=== PATIENT | male | born 1975 | race Caucasian/White ===

== ENCOUNTER → 2017-03-22 | Outpatient (CLI) | payer OTHER ==
--- NOTE | 2017-03-22 12:11 | REP ---
Clinical: thoracic pain. Technique: AP, lateral, and swimmers views. Findings: Alignment and kyphosis is maintained. Vertebral bodies are intact and there is no evidence for acute fracture / compression injury or subluxation. No significant degenerative changes are appreciated . Paravertebral soft tissues are normal. Impression: Normal age related thoracic spine series. Signed by Maximo Mazariegos MD 03/22/2017 12:02 P
--- NOTE | 2017-03-22 12:43 | REP ---
Clinical: Left flank and back pain. Technique: AP, lateral, bilateral oblique and coned-down views of the lumbosacral spine. Findings: Degenerative disc disease at the L5-s1 level includes marginal osteophytes, endplate sclerosis and disc space narrowing along with hypertrophic facet changes. Remainder examination appears normal for age. Alignment and lordosis maintained. No acute fracture or subluxation. Impression: Focal advanced degenerative changes at the L5-S1 level. Signed by Maximo Mazariegos MD 03/22/2017 12:35 P
--- NOTE | 2017-03-22 12:45 | REP ---
ABDOMINAL SERIES: Six views. HISTORY: Back pain. Left flank pain. FINDINGS: Upright chest radiograph is unremarkable. There is no evidence of infiltrate or free subdiaphragmatic air. Heart size is normal. Supine and erect views of the abdomen show air and stool in a nondilated colon. No small bowel dilation is seen. Psoas margins and flank stripes are intact. No mass, organomegaly, or pathologic calcification is seen. IMPRESSION: Unremarkable abdominal series. Signed by Pawan Gudino MD 03/22/2017 01:12 P
== END ==
LOC: M LRY 11:15
PROVIDERS: ATTEND Nurse Practitioner Family
DX: M54.9 Dorsalgia, unspecified (principal)

== ENCOUNTER → 2017-03-22 | Outpatient (REF) | payer OTHER | LOC: M SFHCLERA 11:05 | PROVIDERS: ATTEND Nurse Practitioner Family | DX: M54.9 Dorsalgia, unspecified (principal) ==

== ENCOUNTER → 2017-04-23 | Outpatient (REF) | payer OTHER ==
[2017-04-23 17:37] LABS: MEAN CORPUSCULAR HEMOGLOBIN 29.5 pg (27.0-33.0); MEAN CORPUSCULAR HGB CONC 34.2 g/dl (32.0-36.5); MEAN CORPUSCULAR VOLUME 86.3 fl (80.0-96.0); WHITE BLOOD COUNT 9.2 10^3/uL (4.0-10.0)
[2017-04-23 18:23] LABS: ALBUMIN 3.8 GM/DL (3.2-5.2); ALBUMIN/GLOBULIN RATIO 1.09 (1.00-1.93); ALKALINE PHOSPHATASE 92 U/L (45-117); ALT/SGPT 78 U/L (12-78); ANION GAP 10 MEQ/L (8-16); AST/SGOT 44 U/L (15-37); BILIRUBIN,TOTAL 0.6 MG/DL (0.2-1.0); BLOOD UREA NITROGEN 14 MG/DL (7-18); CALCIUM LEVEL 9.2 MG/DL (8.5-10.1); CARBON DIOXIDE LEVEL 27 MEQ/L (21-32); CHLORIDE LEVEL 103 MEQ/L (98-107); CHOLESTEROL LEVEL 182 MG/DL (<200); CREATININE FOR GFR 0.79 MG/DL (0.70-1.30); FREE T4 0.99 NG/DL (0.76-1.46); GLOMERULAR FILTRATION RATE > 60.0 (>60); GLUCOSE, FASTING 111 MG/DL (70-105); SODIUM LEVEL 140 MEQ/L (136-145); TOTAL PROTEIN 7.3 GM/DL (6.4-8.2); TRIGLYCERIDES LEVEL 157 MG/DL (<150)
== END ==
LOC: M SFHCLERA 11:16
PROVIDERS: ATTEND Family Medicine
DX: R94.31 Abnormal electrocardiogram [ECG] [EKG] (principal); Z01.818 Encounter for other preprocedural examination

== ENCOUNTER 2017-06-20 22:27 | Emergency (ER) | payer OTHER ==
[~2017-06-20] VITALS: Ht 198.1 cm; Wt 145.4 kg
[2017-06-20] MEDS ORDERED: HYDR-3713 PO (22:39)
[2017-06-21] MEDS ORDERED: NORCO 5/325MG TABLET (BULK FOR ED) PO ONE
[2017-06-21 00:12] VITALS: BP 137/79
--- NOTE | 2017-06-21 07:40 | REP ---
Right foot four views: Mineralization joint spaces are unremarkable. There is no fracture or dislocation. There is internal fixation of the distal fibula and medial malleolus. There are no calcifications or foreign bodies. Impression: Essentially negative right foot. Internal fixation of the distal fibula and medial malleolus is incidentally identified. Signed by Orlin Carrillo MD 06/21/2017 07:32 A
== END 2017-06-21 00:13 | disposition home or self-care (01) ==
LOC: M ED 22:27
DX: M79.671 Pain in right foot (principal); M51.9 Unspecified thoracic, thoracolumbar and lumbosacral intervertebral disc disorder; Z87.891 Personal history of nicotine dependence

== ENCOUNTER → 2017-07-31 | Outpatient (CLI) | payer OTHER ==
[2017-08-03 00:09] LABS: Lyme Disease IgG/IgM Antibodie <0.91 ISR (0.00-0.90); Lyme Disease IgM Ab Quantitati <0.80 index (0.00-0.79)
== END ==
LOC: M LRY 11:50
DX: R94.31 Abnormal electrocardiogram [ECG] [EKG] (principal)
CPT/HCPCS: 36415

== ENCOUNTER → 2018-11-27 | Outpatient (CLI) | payer OTHER ==
[~2018-11-27] MED LIST: HYDR-3713 PO
--- NOTE | 2018-11-27 14:04 | REP ---
RIGHT ANKLE, FIVE VIEWS: HISTORY: Pain. The patient is status post ORIF of fractures of the distal tibia and fibula. Metal hardware is present. There is no acute fracture or dislocation. The joint space is normal in appearance. IMPRESSION: There is no acute fracture or dislocation. Electronically Signed by Michael Farley MD 11/27/2018 02:07 P
== END ==
LOC: M LRY 11:16
PROVIDERS: ATTEND Physician Assistant
DX: M25.571 Pain in right ankle and joints of right foot (principal)

== ENCOUNTER → 2020-06-29 | Outpatient (CLI) | payer SELFPAY | LOC: M LABSMTC 14:40 | PROVIDERS: ATTEND Pediatrics | DX: Z20.828 Contact with and (suspected) exposure to other viral communicable diseases (principal) ==

== ENCOUNTER → 2020-08-27 | Outpatient (CLI) | payer OTHER ==
[2020-08-27 12:42] LABS: ALBUMIN 3.6 GM/DL (3.2-5.2); ALT/SGPT 60 U/L (12-78); BILIRUBIN,TOTAL 1.7 MG/DL (0.2-1.0); BLOOD UREA NITROGEN 11 MG/DL (7-18); CALCIUM LEVEL 9.1 MG/DL (8.5-10.1); CARBON DIOXIDE LEVEL 32 MEQ/L (21-32); CHLORIDE LEVEL 103 MEQ/L (98-107); CHOLESTEROL LEVEL 195 MG/DL (<200); CHOLESTEROL RISK RATIO 4.642 (<5); CREATININE FOR GFR 0.79 MG/DL (0.70-1.30); GLOMERULAR FILTRATION RATE > 60.0 (>60); GLUCOSE, FASTING 223 MG/DL (70-100); HDL CHOLESTEROL 42 MG/DL (>40); LDL CHOLESTEROL 129 MG/DL (<100); NON-HDL-C 153 MG/DL; POTASSIUM SERUM 4.3 MEQ/L (3.5-5.1); SODIUM LEVEL 140 MEQ/L (136-145); TRIGLYCERIDES LEVEL 118 MG/DL (<150)
[2020-08-27 12:59] LABS: MALB URINE SIEMENS 12.2 MG/L; MAU/CREAT RATIO 4.6 MCG/MG (0.0-30.0)
[2020-08-27 13:07] LABS: HEMOGLOBIN A1c 10.1 %
== END ==
LOC: M WUC 08:29
PROVIDERS: ATTEND Student in an Organized Health Care Education/Training Program
DX: R73.03 Prediabetes (principal); Z68.38 Body mass index [BMI] 38.0-38.9, adult

== ENCOUNTER → 2020-11-30 | Outpatient (CLI) | payer OTHER ==
[2020-11-30 13:28] LABS: BLOOD UREA NITROGEN 13 MG/DL (7-18); CALCIUM LEVEL 9.4 MG/DL (8.5-10.1); CARBON DIOXIDE LEVEL 29 MEQ/L (21-32); CHLORIDE LEVEL 105 MEQ/L (98-107); GLOMERULAR FILTRATION RATE > 60.0 (>60); GLUCOSE, FASTING 176 MG/DL (70-100); HEMOGLOBIN A1c 8.4 %; SODIUM LEVEL 141 MEQ/L (136-145)
== END ==
LOC: M WUC 10:36
PROVIDERS: ATTEND Student in an Organized Health Care Education/Training Program
DX: E11.9 Type 2 diabetes mellitus without complications (principal)

== ENCOUNTER → 2021-03-04 | Outpatient (CLI) | payer OTHER ==
[2021-03-04 20:31] LABS: BLOOD UREA NITROGEN 19 MG/DL (7-18); CALCIUM LEVEL 9.4 MG/DL (8.5-10.1); CARBON DIOXIDE LEVEL 30 MEQ/L (21-32); CHLORIDE LEVEL 104 MEQ/L (98-107); GLOMERULAR FILTRATION RATE > 60.0 (>60); GLUCOSE, FASTING 110 MG/DL (70-100); POTASSIUM SERUM 4.2 MEQ/L (3.5-5.1); SODIUM LEVEL 139 MEQ/L (136-145)
[2021-03-04 21:00] LABS: HEMOGLOBIN A1c 7.5 %
== END ==
LOC: M WUC 15:13
PROVIDERS: ATTEND Family Medicine
DX: E11.9 Type 2 diabetes mellitus without complications (principal)

== ENCOUNTER → 2021-07-26 | Outpatient (CLI) | payer OTHER, MEDICAID ==
[2021-07-26 14:46] LABS: HEMOGLOBIN A1c 6.7 %
== END ==
LOC: M WUC 09:29
PROVIDERS: ATTEND Student in an Organized Health Care Education/Training Program
DX: E11.9 Type 2 diabetes mellitus without complications (principal)

== ENCOUNTER → 2022-06-14 | Outpatient (CLI) | payer OTHER, MEDICAID ==
[2022-06-14 14:47] LABS: HEMOGLOBIN A1c 8.7 % (4.0-6.0)
== END ==
LOC: M WUC 10:06
PROVIDERS: ATTEND Student in an Organized Health Care Education/Training Program
DX: E11.9 Type 2 diabetes mellitus without complications (principal)

== ENCOUNTER → 2022-11-16 | Outpatient (REF) | payer OTHER, MEDICAID ==
[2022-11-16 12:11] LABS: APPEARANCE, URINE CLEAR (CLEAR); BACTERIA, URINE AUTO NEGATIVE (NEGATIVE); BILIRUBIN, URINE AUTO NEGATIVE (NEGATIVE); BLOOD, URINE BLOOD NEGATIVE (NEGATIVE); COLOR, URINE YELLOW (YELLOW); GLUCOSE, URINE (UA) AUTO 3+ mg/dL (NEGATIVE); KETONE, URINE AUTO NEGATIVE (NEGATIVE); LEUKOCYTE ESTERASE, URINE AUTO NEGATIVE (NEGATIVE); NITRITE, URINE AUTO NEGATIVE (NEGATIVE); PROTEIN, URINE AUTO NEGATIVE (NEGATIVE); RBC, URINE AUTO 0 /HPF (0-3); SPECIFIC GRAVITY URINE AUTO 1.033 (1.002-1.035); SQUAMOUS EPITHELIAL CELL UR AU 0 /HPF (0-6); UROBILINOGEN, URINE AUTO 0.2 mg/dL (0.0-2.0); WBC, URINE AUTO 0 /HPF (0-3)
[2022-11-16 17:58] LABS: HEMOGLOBIN A1c 6.1 % (4.0-6.0)
== END ==
LOC: M SFHCLERA 11:13
PROVIDERS: ATTEND Family Medicine
DX: R30.0 Dysuria (principal); E11.9 Type 2 diabetes mellitus without complications

== ENCOUNTER → 2023-03-15 | Outpatient (CLI) | payer OTHER | LOC: M PLARAD 10:19 | PROVIDERS: ATTEND Podiatrist Foot & Ankle Surgery | DX: D21.22 Benign neoplasm of connective and other soft tissue of left lower limb, including hip (principal) ==

== ENCOUNTER → 2023-05-24 | Outpatient (CLI) | payer OTHER ==
[2023-05-24 12:14] LABS: HEMOGLOBIN A1c 6.5 % (4.0-6.0)
== END ==
LOC: M WUC 09:50
PROVIDERS: ATTEND Nurse Practitioner Family
DX: E11.9 Type 2 diabetes mellitus without complications (principal)

== ENCOUNTER → 2023-10-18 | Outpatient (REF) | payer OTHER ==
[2023-10-18 14:21] LABS: HEMOGLOBIN A1c 5.5 % (4.0-6.0)
== END ==
LOC: M LABWUC 12:08
PROVIDERS: ATTEND Nurse Practitioner Family
DX: E11.9 Type 2 diabetes mellitus without complications (principal)

== ENCOUNTER → 2024-01-16 | Outpatient (CLI) | payer OTHER ==
[~2024-01-16] MED LIST changes: +ATOR1TAB19 PO; +JARD1TAB3 PO; +METF10004 PO; +TIRZ5PEN SC
[2024-01-16 17:23] LABS: MEAN CORPUSCULAR HEMOGLOBIN 29.2 pg (27.0-33.0); MEAN CORPUSCULAR VOLUME 85.8 fl (80.0-96.0); PLATELET COUNT, AUTOMATED 387 10^3/uL (150-450); RED BLOOD COUNT 5.83 10^6/uL (4.30-6.10); WHITE BLOOD COUNT 10.3 10^3/uL (4.0-10.0)
[2024-01-16 17:26] LABS: ALBUMIN 3.9 G/DL (3.2-5.2); ALKALINE PHOSPHATASE 67 U/L (46-116); ALT/SGPT 30 U/L (7.0-40); AST/SGOT 23 U/L (<34); BILIRUBIN,TOTAL 1.3 MG/DL (0.3-1.2); BLOOD UREA NITROGEN 14 MG/DL (9-23); CALCIUM LEVEL 9.5 MG/DL (8.5-10.1); CARBON DIOXIDE LEVEL 30 MMOL/L (20-31); CHLORIDE LEVEL 105 MMOL/L (98-107); GLOMERULAR FILTRATION RATE > 60.0 (>60); GLUCOSE, FASTING 78 MG/DL (60-100); POTASSIUM SERUM 4.3 MMOL/L (3.5-5.1); SODIUM LEVEL 139 MMOL/L (136-145); TOTAL PROTEIN 6.9 G/DL (5.7-8.2)
== END ==
LOC: M WUC 10:19
PROVIDERS: ATTEND Urology
DX: Z01.818 Encounter for other preprocedural examination (principal); N48.1 Balanitis

== ENCOUNTER 2024-01-24 10:00 | Day surgery (SDC) | payer OTHER ==
[~2024-01-24] VITALS: Ht 198.1 cm; Wt 123.4 kg
[2024-01-24] MEDS ORDERED: LIDOCAINE 2% 100MG/5ML SDV (FOR ANES.) As Ordered ONE (10:43)
[2024-01-24] MEDS ORDERED: fentaNYL 250 MCG/5 ML INJECTION As Ordered ONE (10:43)
[2024-01-24] MEDS ORDERED: MIDAZOLAM INJ 2MG/2ML VIAL As Ordered ONE (10:43)
[2024-01-24] MEDS ORDERED: propofoL 200 MG/20 ML VIAL As Ordered ONE (10:43)
[2024-01-24] MEDS ORDERED: ceFAZolin SOD 3 GM in IV 1 EA IV ONE (11:10)
[2024-01-24] MEDS ORDERED: ceFAZolin SOD 2 GM in IV 1 EA IV ONE (11:15)
[2024-01-24] MEDS ORDERED: ceFAZolin SOD 1 GM in D5W MINI-BAG PLUS 50 ML IV ONE (11:15)
[2024-01-24] MEDS ORDERED: LIDOCAINE 1% MDV 20ML VIAL As Ordered ONE (11:17)
[2024-01-24] MEDS ORDERED: ACETAMINOPHEN 1000MG 100ML IV BAG As Ordered ONE (12:11)
[2024-01-24] MEDS ORDERED: KETOROLAC 60MG 2ML VIAL As Ordered ONE (12:13)
[2024-01-24] MEDS ORDERED: ONDANSETRON 4MG 2ML VIAL As Ordered ONE (12:13)
[2024-01-24] MEDS ORDERED: HYDR-3713 PO (12:45)
[2024-01-24] MEDS ORDERED: CEPH500C PO (12:45)
[2024-01-24 13:43] VITALS: BP 119/69; TEMP 97.7; O2SAT 99
== END 2024-01-24 13:49 | disposition home or self-care (01) ==
LOC: M SDC 10:00
PROVIDERS: ATTEND Urology
DX: N48.1 Balanitis (principal); N47.1 Phimosis; E11.9 Type 2 diabetes mellitus without complications; Z79.84 Long term (current) use of oral hypoglycemic drugs; Z79.899 Other long term (current) drug therapy; Z79.85 Long-term (current) use of injectable non-insulin antidiabetic drugs; Z90.89 Acquired absence of other organs
CPT/HCPCS: 54161; 88304; J0131; J1100; J1885; J2250; J2405; J3010

== ENCOUNTER → 2024-02-25 | Outpatient (CLI) | payer OTHER ==
[~2024-02-25] MED LIST changes: +CEPH500C PO
[2024-02-25 12:31] LABS: HEMOGLOBIN A1c 5.1 % (4.0-6.0)
== END ==
LOC: M LAB 11:51
PROVIDERS: ATTEND Internal Medicine
DX: E11.9 Type 2 diabetes mellitus without complications (principal)

== ENCOUNTER → 2024-10-15 | Outpatient (CLI) | payer OTHER ==
[2024-10-15 12:55] LABS: HEMOGLOBIN A1c 4.8 % (4.0-6.0)
[2024-10-15 13:13] LABS: BLOOD UREA NITROGEN 11 MG/DL (9-23); CALCIUM LEVEL 9.4 MG/DL (8.5-10.1); CARBON DIOXIDE LEVEL 31 MMOL/L (20-31); CHLORIDE LEVEL 102 MMOL/L (98-107); CHOLESTEROL LEVEL 135 MG/DL (<200); CHOLESTEROL RISK RATIO 3.13 (<5); CREATININE FOR GFR 0.82 MG/DL (0.70-1.30); GLOMERULAR FILTRATION RATE > 90.0 (>60); GLUCOSE, FASTING 72 MG/DL (60-100); HDL CHOLESTEROL 43.1 MG/DL (>40); LDL CHOLESTEROL 75.7 MG/DL (<100); NON-HDL-C 91.9 MG/DL; POTASSIUM SERUM 4.5 MMOL/L (3.5-5.1); SODIUM LEVEL 142 MMOL/L (136-145); TRIGLYCERIDES LEVEL 81 MG/DL (<150)
== END ==
LOC: M WUC 10:21
PROVIDERS: ATTEND Internal Medicine
DX: E11.9 Type 2 diabetes mellitus without complications (principal)

== ENCOUNTER → 2025-02-06 | Outpatient (CLI) | payer OTHER | LOC: M SOG 06:45 | PROVIDERS: ATTEND Neuromusculoskeletal Medicine, Sports Medicine | DX: M25.512 Pain in left shoulder (principal); M25.511 Pain in right shoulder; M79.642 Pain in left hand; M19.011 Primary osteoarthritis, right shoulder; M19.012 Primary osteoarthritis, left shoulder ==